=== PATIENT | male | born 1970 ===

== ENCOUNTER 2024-03-04 18:27 | Emergency (ER) | payer OTHER ==
[~2024-03-04] VITALS: Ht 185.4 cm; Wt 107.0 kg
[2024-03-04 19:24] LABS: BASOPHILS ABSOLUTE AUTO 0.06 K/mm3 (0.00-0.23); BASOPHILS PERCENT AUTO 1 % (0-2); EOSINOPHILS ABSOLUTE AUTO 0.23 K/mm3 (0.00-0.68); EOSINOPHILS PERCENT AUTO 4 % (0-6); Hematocrit 47.5 % (37.0-53.0); Hemoglobin 16.2 g/dL (13.5-17.5); IMMATURE GRAN ABSOLUTE AUTO 0.02 K/mm3 (0.00-0.10); IMMATURE GRAN PERCENT AUTO 0 % (0-1); LYMPHOCYTES ABSOLUTE AUTO 1.56 K/mm3 (0.84-5.20); LYMPHOCYTES PERCENT AUTO 25 % (21-46); MONOCYTES ABSOLUTE AUTO 0.58 K/mm3 (0.16-1.47); MONOCYTES PERCENT AUTO 9 % (4-13); Mean Corpuscular HGB 31.5 pg (26.0-34.0); Mean Corpuscular HGB Conc 34.1 g/dL (31.5-36.5); Mean Corpuscular Volume 92 fL (80-100); Mean Platelet Volume 10.1 fL (9.1-12.4); NEUTROPHILS ABSOLUTE AUTO 3.69 K/mm3 (1.96-9.15); NEUTROPHILS PERCENT AUTO 60 % (41-73); Platelet Count 220 K/mm3 (150-400); RDW Standard Deviation 43.9 fL (35.1-46.3); Red Blood Cell Count 5.14 M/mm3 (4.30-5.90); White Blood Cell Count 6.14 K/mm3 (4.00-11.30)
[2024-03-04] MEDS ORDERED: Ketorolac Tromethamine 30mg Vial IV ONE (19:30)
[2024-03-04 19:37] LABS: Bun/Creatinine Ratio 19.2 (12.0-20.0); C-REACTIVE PROTEIN, EXT RANGE 0.322 mg/dL (0.000-0.300); Calcium, Blood 9.1 mg/dL (8.5-10.1); Creatinine, Blood 1.25 mg/dL (0.60-1.20); Potassium, Blood 4.1 mmol/L (3.5-5.5)
[2024-03-04] MEDS ORDERED: Colchicine 0.6 MG TAB PO ONE (20:50)
[2024-03-04] MEDS ORDERED: COLCHICINE0.6 MG PO (20:51)
[2024-03-04] MEDS ORDERED: INDO50 PO (20:51)
== END 2024-03-04 21:07 | disposition home or self-care (01) ==
LOC: ER 18:27
PROVIDERS: Emergency Medicine
DX: M10.9 Gout, unspecified (principal)
CPT/HCPCS: 73620; 80048; 85025; 86140; 93971; 96374; 99284-25; A9270; J1885

== ENCOUNTER → 2024-03-04 | Outpatient (CLI) | payer SELFPAY ==
[~2024-03-04] MED LIST: COLCHICINE0.6 MG PO; INDO50 PO
== END | disposition home or self-care (01) ==
LOC: LAB SHORT 16:35
DX: M79.89 Other specified soft tissue disorders (principal)
CPT/HCPCS: 84550